=== PATIENT | male | born 1980 | race American Indian/Alaskan Native ===

== ENCOUNTER 2019-03-18 12:58 | Emergency (ER) | payer SELFPAY ==
[2019-03-18 15:04] VITALS: BP 121/63
--- NOTE | 2019-03-18 15:06 | Emergency Department Report ---
Chief Complaint: Shoulder Injury Stated Complaint: SHOULDER/BACK PAIN Time Seen by Provider: 03/18/19 15:01 - HPI History of Present Illness: pt presents for right shoulder that began a month ago states it improved with self massage no fall or injury no numbness or weakness states that he lifts heavy stuff at work states that he has right upper dental pain that began two months ago has not seen a dentist in years no fever no vomiting or diarrhea no facial edema no allergies to meds vitals are normal on exam: non toxic appearing, no acute distress normal oropharynx normal TMs and canals no uvular edema, uvula is midline cracked teeth and missing tooth present to the right lower jaw no edema or induration of the gum line, no facial edema FROM of the entire RUE without difficulty, no joint laxity, no edema, no deformity, no AC joint tenderness, no sulcus sign, clavicles are equal, no clavicular TTP, neurovasculary intact no signs of dental abscess or facial cellulitis no acute trauma pt is presenting with a non medical emergency at this time medical screening examination performed, there is no threat to life or limb pt referred to dentist, PCP, and orthopedic doctor pt given strict return precautions - Exam Vital Signs: Vital Signs 03/18/19 15:02 Temperature 98.5 F Pulse Rate 61 Respiratory 18 Rate Blood Pressure 121/63 O2 Sat by Pulse 98 Oximetry MSE screening note: Focused history and physical exam performed. ED Disposition for MSE Clinical Impression: Toothache, Dental caries Right shoulder pain Qualifiers: Chronicity: acute Qualified Code(s): M25.511 - Pain in right shoulder Disposition: Z-07 MED SCREENING EXAM-LEFT Is pt being admited?: No Does the pt Need Aspirin: No Condition: Stable Instructions: Muscle Strain (ED), Dental Caries (ED) Additional Instructions: may take tylenol or ibuprofen as needed for pain. may use over the counter pain relief rubs. follow up with a primary care doctor, dentist, and orthopedic doctor. return to the emergency room for any new or worsening symptoms. Referrals: PRIMARY [facility] [Primary Care Provider] - 2-3 Days [facility] [Outside] - 2-3 Days [facility] [Outside] - 2-3 Days [facility] [Outside] - 2-3 Days CRUZITO TATUM MD [Staff Physician] - 2-3 Days MICH COREA MD [Staff Physician] - 2-3 Days [facility] [Provider Group] - 2-3 Days Time of Disposition: 15:19 Print Language: TAMAZIGHT
== END 2019-03-18 15:33 | disposition left against medical advice (07) ==
LOC: ED 12:58
DX: M25.511 Pain in right shoulder (principal); K02.9 Dental caries, unspecified; K08.89 Other specified disorders of teeth and supporting structures